=== PATIENT | male | born 1950 | race Caucasian/White ===

== ENCOUNTER 2024-10-12 07:07 | Emergency (ER) | payer OTHER, SELFPAY ==
[2024-10-12 07:18] VITALS: BP 95/64
--- NOTE | 2024-10-12 08:01 | ED.GENMED ---
History of Present Illness
General
Chief Complaint: Ear Problem
Source: patient
Exam Limitations: none
Time Seen by Provider: 10/12/24 07:46
History of Present Illness
History of Present Illness:
73-year-old male sudden onset of hearing loss to the right ear last evening. Occurred at rest. It is essentially resolved at this time. No headache no neck pain no vertigo disequilibrium no numbness tingling weakness gait issues or any other
neurologic issues. No history of same.
Past History
Past History
ED Past Medical History: NIDDM and Other (Diabetes, hyperlipidemia, gout)
ED Past Surgical History: Cholecystectomy and Other (Cyst removed from the back)
Social History
Tobacco: Non-smoker
Alcohol: Occasional
Family History
Family History: CAD
Review of Systems
Review of Systems
All Other Systems: Not applicable
Neurological: Denies dizzy, headache, weakness or numbness
Phy Exam
Physical Exam
Physical Exam:
GENERAL: Alert and oriented in no apparent distress. Sitting up on the edge of the bed on his phone. Nontoxic.
EYE: Orbits normal.
NECK: Supple, no carotid bruit
ENT: Pharynx without erythema. TMs clear bilaterally
CARDIAC: Regular rate and rhythm without any obvious murmurs.
LUNGS: Clear breath sounds,normal
NEUROLOGICAL: Alert and oriented , speech normal. Cranial nerves II through XII intact. Extraocular muscles intact. [id number] normal. [employer] normal. Gait normal.
SKIN: Warm and dry
PSYCH: Normal and appropriate interaction.
Course
Vital Signs
Initial and Last Documented VS:
Initial Vital Signs
Temp Pulse Resp BP Pulse Ox
97.5 F 57 18 95/64 98
10/12/24 07:18 10/12/24 07:18 10/12/24 07:18 10/12/24 07:18 10/12/24 07:18
Last Documented Vital Signs
Temp Pulse Resp BP Pulse Ox
97.5 F 54 16 105/65 98
10/12/24 07:18 10/12/24 08:11 10/12/24 08:11 10/12/24 08:11 10/12/24 08:06
MDM/Problems Addressed
Differential Diagnosis Includes:
Patient's exam is normal. Hearing issues have essentially resolved. I find no other neurologic symptoms or complaints. No neck symptoms no carotid bruit. I did explain to the patient that I did not have a definitive explanation for his transient
hearing loss in the right ear alone. I also explained at length that although statistically very unlikely this could be related to a central neurologic issue. ER workup could include CT angios of the head and neck along with labs. Admittedly the
yield on this would be very low. After lengthy discussion with the patient, joint decision making was to not pursue this at this time. He will take a baby aspirin per day and watch the symptoms as an outpatient with return to the ER with any
progression of symptoms or any new neurologic issues. He is aware of the risk.
*Pulse Oximetry
SaO2: 98
Oxygen Mode of Delivery: Room air
Patient hypoxic: no
*Critical Care Note
Total Time (30-74mins, 75-104mins- exclusive of procedures): Not Applicable
Update Note
Update Note:
The was present and I reiterated the same issues concerns and approaches to this transient hearing loss. They are both comfortable with outpatient observation and understand the risks
ED Attending Note
-
Portions of this chart may have been created with voice recognition software.� Occasional wrong word or��sound alike� substitutions may have occurred due to the inherent limitations of voice recognition software.
Discharge Plan
Departure
Patient Disposition: Home (Routine Discharge)
Date of Disposition: 10/12/24
Time of Disposition: 08:04
Patient with high blood pressure during this ER visit?: No
Discharge Problem:
Acute right hearing loss transient
Prescriptions:
No Action
hydrocodone-acetaminophen [Vicodin] 1 EACH tablet
1 ea PO Q4HPRN PRN (Reason: pain) Qty: 15 0RF
Activity Restrictions/Additional Instructions:
Take a baby aspirin per day
Follow-up closely with your primary physician
Return with any recurrent hearing issues, headache neck pain or any other neurologic symptoms
Interventions
Interventions:
*Risk Screen - Suicide Last Done: 10/12/24 07:18
*General Assessment Last Done: 10/12/24 07:18
*Neglect/Abuse Screening Last Done: 10/12/24 07:18
*ED- Fall Risk Assessment Last Done: 10/12/24 07:41
*ED COVID-19 Vaccine History Last Done: 10/12/24 07:18
*Nursing Disposition Last Done: 10/12/24 08:26
Discharge Date and Time
Discharge Date/Time: 10/12/24 08:27
Print Language: MONGOLIAN
[2024-10-12 08:11] VITALS: BP 105/65
== END 2024-10-12 08:27 | disposition home or self-care (01) ==
LOC: EMR 07:07
PROVIDERS: EMERGENCY PHYSICIAN Emergency Medicine; FAMILY PHYSICIAN Student in an Organized Health Care Education/Training Program
DX: H91.91 Unspecified hearing loss, right ear (principal); E11.9 Type 2 diabetes mellitus without complications; E78.00 Pure hypercholesterolemia, unspecified; Z82.49 Family history of ischemic heart disease and other diseases of the circulatory system; Z90.49 Acquired absence of other specified parts of digestive tract
CPT/HCPCS: 99282